=== PATIENT | female | born 1995 | race African-American/Black ===

== ENCOUNTER 2018-01-27 04:45 | Emergency (ER) | payer SELFPAY ==
--- NOTE | 2018-01-27 05:39 | ER ---
Nurse's Notes [facility] Name: Paula Walker Age: 22 yrs Sex: Female : 1995 Arrival Date: 01/27/2018 Time: 04:46 Bed 13 Private MD: None, None Diagnosis: Chest pain. GERD Presentation: 01/27 04:57 Presenting complaint: Patient states: cental chest pain that radiates down to ak1 epigastric area that started at 0200 this morning. pt stated at 0200 she vomited X1 and had a BM, pain resolved. pt woke at 0400 with pain again. Transition of care: patient was not received from another setting of care. Onset of symptoms was January 27, 2018. Risk Assessment: Do you want to hurt yourself or someone else? Patient reports no desire to harm self or others. Initial Sepsis Screen: Does the patient meet any 2 criteria? No. Patient's initial sepsis screen is negative. Does the patient have a suspected source of infection? No. Patient's initial sepsis screen is negative. Care prior to arrival: None. 04:57 Method Of Arrival: Ambulatory ak1 04:57 Acuity: EMILY 3 ak1 Triage Assessment: 04:59 General: Appears in no apparent distress. Behavior is calm, cooperative. Pain: ak1 Complains of pain in xyphoid area and mid-sternal area. EENT: No signs and/or symptoms were reported regarding the EENT system. Neuro: No deficits noted. Cardiovascular: Reports chest pain, vomiting. Respiratory: No deficits noted. GI: Abdomen is round Bowel sounds present X 4 quads. Abd is soft and non tender X 4 quads. Reports vomiting. : No signs and/or symptoms were reported regarding the genitourinary system. Derm: No signs and/or symptoms reported regarding the dermatologic system. Musculoskeletal: No signs and/or symptoms reported regarding the musculoskeletal system. 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 - Social history:: Smoking status: Patient/guardian denies using tobacco. - Ebola Screening: : No symptoms or risks identified at this time. Screenin:01 Abuse screen: Denies threats or abuse. Denies injuries from another. Nutritional ak1 screening: No deficits noted. Tuberculosis screening: No symptoms or risk factors identified. Fall Risk None identified. Assessment: 05:01 Pain: Pain radiates to chest and mid-sternal area and xyphoid area Pain began 3 hours ak1 ago. 05:02 Reassessment: Patient appears in no apparent distress at this time. No changes from ak1 previously documented assessment. see triage assessment. Vital Signs: 04:59 BP 119 / 67; Pulse 70; Resp 16; Temp 98.4(TE); Pulse Ox 98% on R/A; Weight 77.11 kg ak1 (M); Height 5 ft. 5 in. (165.10 cm) (R); Pain 5/10; 04:59 Body Mass Index 28.29 (77.11 kg, 165.10 cm) ak1 ED Course: 04:46 Patient arrived in ED. es 04:46 None, None is Private Physician. es 04:56 Malini Garza, RN is Primary Nurse. ak1 04:58 Triage completed. ak1 04:59 Arm band placed on Patient placed in an exam room, on a stretcher, on pulse oximetry, ak1 Patient notified of wait time. 05:02 Patient has correct armband on for positive identification. Bed in low position. Call ak1 light in reach. Side rails up X 1. Pulse ox on. NIBP on. 05:02 Patient maintains SpO2 saturation greater than 95% on room air. ak1 05:12 Urine collected: clean catch specimen, malini colored. ak1 05:18 Odin Haider MD is Attending Physician. pkl 06:12 No provider procedures requiring assistance completed. Patient did not have IV access ak1 during this emergency room visit. Administered Medications: 05:48 Drug: GI Cocktail without - (Maalox Suspension 30 ml, Lidocaine Liquid 2 % 15 jd3 ml) Route: PO; 06:06 Follow up: Response: No adverse reaction ak1 Outcome: 05:38 Discharge ordered by . pkl 06:12 Discharged to home ambulatory, with family. ak1 06:12 Condition: improved 06:12 Discharge instructions given to patient, family, Instructed on discharge instructions, follow up and referral plans. medication usage, Demonstrated understanding of instructions, follow-up care, medications, Prescriptions given X 1. 06:13 Patient left the ED. ak1 Signatures: Odin Haider MD MD pkl Salyer, Edna es Krenek, Amber RN RN ak1 Meet Vazquez RN RN jd3
--- NOTE | 2018-01-27 05:39 | EDPHYS ---
Physician Documentation [facility] Name: Paula Walker Age: 22 yrs Sex: Female : 1995 Arrival Date: 01/27/2018 Time: 04:46 Bed 13 Private MD: None, None ED Physician Odin Haider HPI: 01/27 05:34 This 22 yrs old Black Female presents to ER via Ambulatory with complaints of Chest pkl Pain, Abdominal Pain. 05:34 The patient or guardian reports chest pain that is located primarily in the substernal pkl area, epigastric area. Associated signs and symptoms: The patient has no apparent associated signs or symptoms. The chest pain is described as burning. 05:34 Patient said pain started 4 hours ago. 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 - Social history:: Smoking status: Patient/guardian denies using tobacco. - Ebola Screening: : No symptoms or risks identified at this time. ROS: 05:34 Eyes: Negative for injury, pain, redness, and discharge, ENT: Negative for injury, pkl pain, and discharge, Neck: Negative for injury, pain, and swelling. 05:34 Cardiovascular: Positive for chest pain. 05:34 Respiratory: Negative for cough, shortness of breath. 05:34 Abdomen/GI: Positive for abdominal pain, of the epigastric area. 05:34 Back: Negative for acute changes. 05:34 : Negative for urinary symptoms. 05:34 MS/extremity: Negative for acute changes. 05:34 Skin: Negative for rash. 05:34 Neuro: Negative for altered mental status. Exam: 05:34 Head/Face: Normocephalic, atraumatic. Eyes: Pupils equal round and reactive to light, pkl extra-ocular motions intact. Lids and lashes normal. Conjunctiva and sclera are non-icteric and not injected. Cornea within normal limits. Periorbital areas with no swelling, redness, or edema. ENT: Nares patent. No nasal discharge, no septal abnormalities noted. Tympanic membranes are normal and external auditory canals are clear. Oropharynx with no redness, swelling, or masses, exudates, or evidence of obstruction, uvula midline. Mucous membranes moist. Neck: Trachea midline, no thyromegaly or masses palpated, and no cervical lymphadenopathy. Supple, full range of motion without nuchal rigidity, or vertebral point tenderness. No Meningismus. Chest/axilla: Normal chest wall appearance and motion. Nontender with no deformity. No lesions are appreciated. Cardiovascular: Regular rate and rhythm with a normal S1 and S2. No gallops, murmurs, or rubs. Normal PMI, no JVD. No pulse deficits. Respiratory: Lungs have equal breath sounds bilaterally, clear to auscultation and percussion. No rales, rhonchi or wheezes noted. No increased work of breathing, no retractions or nasal flaring. 05:34 Abdomen/GI: Bowel sounds: normal, Palpation: abdomen is soft and non-tender, in all quadrants, soft. 05:34 Back: Exam negative for acute changes. 05:34 : Exam negative for acute changes. 05:34 Musculoskeletal/extremity: Exam is negative for acute changes. 05:34 Skin: Exam negative for rash. 05:34 Neuro: Orientation: is normal, Mentation: is normal, Cranial nerves: grossly normal, Motor: is normal. Vital Signs: 04:59 BP 119 / 67; Pulse 70; Resp 16; Temp 98.4(TE); Pulse Ox 98% on R/A; Weight 77.11 kg ak1 (M); Height 5 ft. 5 in. (165.10 cm) (R); Pain 5/10; 04:59 Body Mass Index 28.29 (77.11 kg, 165.10 cm) ak1 MDM: 05:18 Patient medically screened. pkl 05:37 Data reviewed: vital signs, nurses notes, EKG. pkl 01/27 05:21 Order name: Urine Dipstick--Ancillary (enter results); Complete Time: 06:14 ms 01/27 05:21 Order name: Urine --Ancillary (enter results); Complete Time: 06:14 ms 01/27 05:19 Order name: EKG; Complete Time: 05:20 ak1 01/27 05:19 Order name: EKG - Nurse/Tech; Complete Time: 05:20 ak1 Administered Medications: 05:48 Drug: GI Cocktail without - (Maalox Suspension 30 ml, Lidocaine Liquid 2 % 15 jd3 ml) Route: PO; 06:06 Follow up: Response: No adverse reaction ak1 Disposition: 01/27/18 05:38 Discharged to Home. Impression: Chest pain. GERD. - Condition is Stable. - Prescriptions for Protonix 40 mg Oral Tablet, Delayed Release (E.C.) - take 1 tablet by ORAL route once daily; 15 tablet. - Medication Reconciliation Form, Thank You Letter, Antibiotic Education, Prescription Opioid Use form. - Follow up: Private Physician; When: 2 - 3 days; Reason: Re-evaluation by your physician. - Problem is new. - Symptoms have improved. Signatures: Dispatcher [employer] EDMS Odin Haider MD MD pkl Virginie Garza RN RN ak1 Meet Vazquez RN RN jd3 Corrections: (The following items were deleted from the chart) 06:13 05:38 01/27/2018 05:38 Discharged to Home. Impression: Chest pain. GERD. Condition is ak1 Stable. Forms are Medication Reconciliation Form, Thank You Letter, Antibiotic Education, Prescription Opioid Use. Follow up: Private Physician; When: 2 - 3 days; Reason: Re-evaluation by your physician. Problem is new. Symptoms have improved. pkl
[2018-01-27] MEDS ORDERED: MAGNE/ALUM HYDROXD 30 ML UCUP ONE (05:49)
[2018-01-27] MEDS ORDERED: LIDOCAINE VISCOUS 2% SOLN 15 ML UDC ONE (05:49)
[2018-01-27 06:00] LABS: Urine Blood 3+ (NEG); Urine Glucose NEGATIVE (NEG); Urine Protein 1+ (NEG); Urine Specific Gravity 1.025 (1.005-1.030)
[2018-01-27 06:19] VITALS: BP 119/67; TEMP 98.4; O2SAT 98
--- NOTE | 2018-01-27 12:09 | EKG ---
Test Date: 2018-01-27 Test Time: 05:14:08 Supervisor Print Line: CRISTAL MEASUREMENT RESULTS: Intervals: Rate: 74 MD: 144 QRSD: 74 QT: 376 QTc: 417 [place]: P: 64 MD: 144 QRS: 40 T: 37 INTERPRETIVE STATEMENTS: Normal sinus rhythm with sinus arrhythmia Nonspecific T wave abnormality Abnormal ECG Compared to ECG 08/10/2014 15:51:51 T-wave abnormality now present Electronically Signed On 01-27-18 12:08:29 CDT by Jack Mike
== END 2018-01-27 06:13 | disposition home or self-care (01) ==
LOC: ER 04:45
DX: K21.9 Gastro-esophageal reflux disease without esophagitis (principal)
CPT/HCPCS: 81003; 81025; 93005; 99284

== ENCOUNTER 2018-08-20 10:10 | Emergency (ER) | payer SELFPAY ==
[2018-08-20 11:19] LABS: Urine Blood 3+ (NEG); Urine Glucose NEGATIVE (NEG); Urine Protein 3+ (NEG); Urine pH 6.5 (5.0-7.0)
[2018-08-20 11:30] LABS: Absolute Lymphocytes (CBC) 2.4 K/uL (0.7-4.9); Absolute Monocytes 0.3 K/uL (0.1-1.3); Absolute Neutrophil 3.3 K/uL (1.8-8.0); Basophils % 0.4 % (0-1.3); Eosinophils % 0.7 % (0-4.4); Hematocrit 41.7 % (36.0-45.0); Lymphocytes % 39.2 % (15.3-44.8); Monocytes % 5.6 % (3.3-12.3); RBC Red Blood Cell Count 4.84 M/uL (3.86-4.86)
[2018-08-20 11:49] LABS: BUN Blood Urea Nitrogen 13 mg/dL (7-18); Bicarbonate 28 mmol/L (21-32); Glucose Level 87 mg/dL (74-106); Potassium 4.1 mmol/L (3.5-5.1); Sodium Level 141 mmol/L (136-145)
[2018-08-20 11:50] LABS: HCG, Quantitative < 1 mIU/mL (1-3)
--- NOTE | 2018-08-20 12:06 | ER ---
Nurse's Notes [facility] Name: Paula Walker Age: 23 yrs Sex: Female : 1995 Arrival Date: 08/20/2018 Time: 10:12 Bed 16 Private MD: Diagnosis: Abnormal uterine and vaginal bleeding, unspecified Presentation: 08/20 10:24 Presenting complaint: Patient states: LMP- 06/14/18; took a test Thursday, it says i was ; this AM when i wiped i saw light blood; dark santos color; denies N/V;. Transition of care: patient was not received from another setting of care. Onset of symptoms was August 20, 2018. Risk Assessment: Do you want to hurt yourself or someone else? Patient reports no desire to harm self or others. Initial Sepsis Screen: Does the patient meet any 2 criteria? No. Patient's initial sepsis screen is negative. Does the patient have a suspected source of infection? No. Patient's initial sepsis screen is negative. Care prior to arrival: None. 10:24 Method Of Arrival: Ambulatory 10:24 Acuity: MEILY 3 Triage Assessment: 10:26 General: Appears in no apparent distress. uncomfortable, Behavior is calm, cooperative, hj appropriate for age. Pain: Denies pain. : Reports vaginal bleeding that is. 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 - Social history:: Smoking status: Patient/guardian denies using tobacco, Patient/guardian denies using alcohol. - Ebola Screening: : Patient negative for fever greater than or equal to 101.5 degrees Fahrenheit, and additional compatible Ebola Virus Disease symptoms Patient denies exposure to infectious person Patient denies travel to an Ebola-affected area in the 21 days before illness onset. Screenin:26 Abuse screen: Denies threats or abuse. Denies injuries from another. Nutritional hj screening: No deficits noted. Tuberculosis screening: No symptoms or risk factors identified. Fall Risk None identified. Assessment: 11:00 Obstetrical Assessment: General assessment: awake and alert, skin warm and dry, bp respirations even and unlabored. General: Appears in no apparent distress. comfortable, Behavior is calm, cooperative, appropriate for age. Pain: Denies pain. Neuro: Level of Consciousness is awake, alert, obeys commands, Oriented to person, place, time, situation, Appropriate for age. Cardiovascular: No deficits noted. Respiratory: Airway is patent Respiratory effort is even, unlabored, Respiratory pattern is regular, symmetrical. GI: No signs and/or symptoms were reported involving the gastrointestinal system. : Reports vaginal bleeding that is. EENT: No deficits noted. Derm: No deficits noted. Musculoskeletal: No deficits noted. 12:36 Reassessment: PT D/C HOME AMBULATORY WITH FAMILY, DX WITH ABNORMAL UTERINE BLEEDING. bp Vital Signs: 10:27 BP 102 / 53; Pulse 71; Resp 18; Temp 98.5(TE); Pulse Ox 100% on R/A; Weight 93.89 kg; hj Height 5 ft. 5 in. (165.10 cm); Pain 0/10; 12:38 BP 111 / 57; Pulse 75; Resp 16; Pulse Ox 99% ; bp 10:27 Body Mass Index 34.44 (93.89 kg, 165.10 cm) hj ED Course: 10:12 Patient arrived in ED. as 10:25 Triage completed. hj 10:26 Arm band placed on left wrist. hj 10:27 Patient has correct armband on for positive identification. Placed in gown. Bed in low hj position. Call light in reach. Side rails up X 1. Adult w/ patient. 10:30 Ariel Guajardo PA is PHCP. jr8 10:30 Hector Liu MD is Attending Physician. jr8 10:35 Jay Armas, [employer] is Primary Nurse. bp 11:05 Inserted saline lock: 20 gauge in left antecubital area, using aseptic technique. Blood bp collected. 12:36 No provider procedures requiring assistance completed. IV discontinued, intact, bp bleeding controlled, No redness/swelling at site. Pressure dressing applied. Administered Medications: No medications were administered Point of Care Testing: Urine : 12:38 hCG Reading: Negative; Control Reading: Positive; bp Outcome: 12:05 Discharge ordered by . jr8 12:36 Discharged to home ambulatory, with family. bp 12:36 Condition: stable 12:36 Discharge instructions given to patient, Instructed on discharge instructions, follow up and referral plans. Demonstrated understanding of instructions, follow-up care. 12:38 Patient left the ED. em Signatures: Gerardo Rivera, SENIOR RADIATION PROTECTION TECHNICIAN SENIOR RADIATION PROTECTION TECHNICIAN em Kathia Porter Josh, PA PA jr8 Dionicio Cheung RN RN Jay Dupree RN RN bp Corrections: (The following items were deleted from the chart) 10:29 10:27 Pulse 71bpm; Resp 18bpm; Pulse Ox 100% RA; Temp 98.5F Temporal; 93.89 kg; Height hj 5 ft. 5 in.; BMI: 34.4; Pain 0/10; hj
--- NOTE | 2018-08-20 12:06 | EDPHYS ---
Physician Documentation [facility] Name: Paula Walker Age: 23 yrs Sex: Female : 1995 Arrival Date: 08/20/2018 Time: 10:12 Bed 16 Private MD: ED Physician Hector Liu HPI: 08/20 12:01 This 23 yrs old Black Female presents to ER via Ambulatory with complaints of Vaginal jr8 Bleeding, + Preg <12wks. 12:01 course: care: none. Previous pregnancies: in previous pregnancies jr8 patient has had vaginal delivery, no complications. Associated signs and symptoms: The patient has no apparent associated signs or symptoms. The patient has not experienced similar symptoms in the past. The patient has not recently seen a physician. Patient stated that she had light menstrual cycle beginning of july. Stopped and then started again today but took test showed positive . 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 - Social history:: Smoking status: Patient/guardian denies using tobacco, Patient/guardian denies using alcohol. - Ebola Screening: : Patient negative for fever greater than or equal to 101.5 degrees Fahrenheit, and additional compatible Ebola Virus Disease symptoms Patient denies exposure to infectious person Patient denies travel to an Ebola-affected area in the 21 days before illness onset. ROS: 12:01 Eyes: Negative for injury, pain, redness, and discharge, ENT: Negative for injury, jr8 pain, and discharge, Neck: Negative for injury, pain, and swelling, Cardiovascular: Negative for chest pain, palpitations, and edema, Respiratory: Negative for shortness of breath, cough, wheezing, and pleuritic chest pain, Abdomen/GI: Negative for abdominal pain, nausea, vomiting, diarrhea, and constipation, Back: Negative for injury and pain, MS/Extremity: Negative for injury and deformity, Skin: Negative for injury, rash, and discoloration, Neuro: Negative for headache, weakness, numbness, tingling, and seizure. 12:01 : Positive for vaginal bleeding. Exam: 12:01 Eyes: Pupils equal round and reactive to light, extra-ocular motions intact. Lids and jr8 lashes normal. Conjunctiva and sclera are non-icteric and not injected. Cornea within normal limits. Periorbital areas with no swelling, redness, or edema. ENT: Nares patent. No nasal discharge, no septal abnormalities noted. Tympanic membranes are normal and external auditory canals are clear. Oropharynx with no redness, swelling, or masses, exudates, or evidence of obstruction, uvula midline. Mucous membranes moist. Neck: Trachea midline, no thyromegaly or masses palpated, and no cervical lymphadenopathy. Supple, full range of motion without nuchal rigidity, or vertebral point tenderness. No Meningismus. Cardiovascular: Regular rate and rhythm with a normal S1 and S2. No gallops, murmurs, or rubs. Normal PMI, no JVD. No pulse deficits. Respiratory: Lungs have equal breath sounds bilaterally, clear to auscultation and percussion. No rales, rhonchi or wheezes noted. No increased work of breathing, no retractions or nasal flaring. Abdomen/GI: Soft, non-tender, with normal bowel sounds. No distension or tympany. No guarding or rebound. No evidence of tenderness throughout. Back: No spinal tenderness. No costovertebral tenderness. Full range of motion. Skin: Warm, dry with normal turgor. Normal color with no rashes, no lesions, and no evidence of cellulitis. MS/ Extremity: Pulses equal, no cyanosis. Neurovascular intact. Full, normal range of motion. Neuro: Awake and alert, GCS 15, oriented to person, place, time, and situation. Cranial nerves II-XII grossly intact. Motor strength 5/5 in all extremities. Sensory grossly intact. Cerebellar exam normal. Normal gait. Vital Signs: 10:27 BP 102 / 53; Pulse 71; Resp 18; Temp 98.5(TE); Pulse Ox 100% on R/A; Weight 93.89 kg; hj Height 5 ft. 5 in. (165.10 cm); Pain 0/10; 12:38 BP 111 / 57; Pulse 75; Resp 16; Pulse Ox 99% ; bp 10:27 Body Mass Index 34.44 (93.89 kg, 165.10 cm) hj MDM: 10:31 Patient medically screened. [facility] 12:01 Data reviewed: vital signs, nurses notes, lab test result(s), and as a result, I will jr8 discharge patient. Data interpreted: Pulse oximetry: on room air is 100 %. Interpretation: normal. Counseling: I had a detailed discussion with the patient and/or guardian regarding: the historical points, exam findings, and any diagnostic results supporting the discharge/admit diagnosis, lab results, the need for outpatient follow up, an OB/Gyne specialist, to return to the emergency department if symptoms worsen or persist or if there are any questions or concerns that arise at home. 08/20 10:43 Order name: Quantitative Hcg [facility] 08/20 10:43 Order name: Abo/rh Typing; Complete Time: 12:15 [facility] 08/20 10:43 Order name: Basic Metabolic Panel; Complete Time: 12: [facility] 08/20 10:43 Order name: CBC with Diff; Complete Time: 11:34 [facility] 08/20 10:43 Order name: HCG, Quantitative; Complete Time: 12:01 EDMS 08/20 11:16 Order name: Urine Dipstick--Ancillary (enter results); Complete Time: 11:34 eb 08/20 10:43 Order name: Urine Test (obtain specimen); Complete Time: 11:16 [facility] 08/20 10:43 Order name: IV Saline Lock; Complete Time: 11:16 08/20 10:43 Order name: Labs collected and sent; Complete Time: 11:16 [facility] 08/20 10:43 Order name: NPO; Complete Time: 11:16 [facility] 08/20 10:43 Order name: Urine Dipstick-Ancillary (obtain specimen); Complete Time: 11: 08/20 11:16 Order name: Urine --Ancillary (enter results); Complete Time: 11:34 eb Administered Medications: No medications were administered Point of Care Testing: Urine : 12:38 hCG Reading: Negative; Control Reading: Positive; bp Disposition: 13:38 Co-signature as Attending Physician, Hector Liu MD I agree with the assessment and kdr plan of care. Disposition: 08/20/18 12:05 Discharged to Home. Impression: Abnormal uterine and vaginal bleeding, unspecified. - Condition is Stable. - Discharge Instructions: Abnormal Uterine Bleeding. - Medication Reconciliation Form, Thank You Letter, Antibiotic Education, Prescription Opioid Use form. - Follow up: Private Physician; When: 2 - 3 days; Reason: Recheck today's complaints, Continuance of care, Re-evaluation by your physician. - Problem is new. - Symptoms have improved. Signatures: Dispatcher [employer] EDMS Hector Liu MD MD kdr Munoz, Edgar, SALES ENGAGEMENT EXECUTIVE SALES ENGAGEMENT EXECUTIVE em Ariel Guajardo PA PA jr8 Dionicio Cheung RN RN hj Corrections: (The following items were deleted from the chart) 12:38 12:05 08/20/2018 12:05 Discharged to Home. Impression: Abnormal uterine and vaginal em bleeding, unspecified. Condition is Stable. Forms are Medication Reconciliation Form, Thank You Letter, Antibiotic Education, Prescription Opioid Use. Follow up: Private Physician; When: 2 - 3 days; Reason: Recheck today's complaints, Continuance of care, Re-evaluation by your physician. Problem is new. Symptoms have improved. jr8
[2018-08-20 12:43] VITALS: TEMP 98.5
[2018-08-20 12:44] VITALS: BP 111/57; O2SAT 99
== END 2018-08-20 12:38 | disposition home or self-care (01) ==
LOC: ER 10:10
DX: N93.9 Abnormal uterine and vaginal bleeding, unspecified (principal)
CPT/HCPCS: 36415; 80048; 81003; 81025; 84702; 85025; 86900; 86901; 99283

== ENCOUNTER 2019-01-20 10:35 | Emergency (ER) | payer SELFPAY ==
--- NOTE | 2019-01-20 11:13 | ER ---
Nurse's Notes [facility] Name: Paula Walker Age: 23 yrs Sex: Female : 1995 Arrival Date: 01/20/2019 Time: 10:37 Bed 14 Private MD: Diagnosis: Conjunctivitis-left eye Presentation: 01/20 10:48 Presenting complaint: Patient states: green drainage and pain to L eye for the past two days. Transition of care: patient was not received from another setting of care. Onset of symptoms was January 18, 2019. Risk Assessment: Do you want to hurt yourself or someone else? Patient reports no desire to harm self or others. Initial Sepsis Screen: Does the patient meet any 2 criteria? No. Patient's initial sepsis screen is negative. Does the patient have a suspected source of infection? No. Patient's initial sepsis screen is negative. Care prior to arrival: None. 10:48 Method Of Arrival: Ambulatory 10:48 Acuity: EMILY 5 ch Triage Assessment: 10:48 General: Appears in no apparent distress. uncomfortable, Behavior is calm, cooperative, ch appropriate for age. Pain: Complains of pain in left eye Pain currently is 3 out of 10 on a pain scale. Pain began gradually. EENT: Eyes are tearing on left eye with exudate noted from left eye Sclera/Cornea are reddened in left eye. Respiratory: No deficits noted. Derm: Skin is pink, warm \T\ dry. 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 - Social history:: Smoking status: Patient/guardian denies using tobacco, Patient/guardian denies using alcohol, street drugs. - Ebola Screening: : Patient negative for fever greater than or equal to 101.5 degrees Fahrenheit, and additional compatible Ebola Virus Disease symptoms Patient denies exposure to infectious person Patient denies travel to an Ebola-affected area in the 21 days before illness onset No symptoms or risks identified at this time. Screenin:54 Abuse screen: Denies threats or abuse. Denies injuries from another. Nutritional ch screening: No deficits noted. Tuberculosis screening: No symptoms or risk factors identified. Fall Risk None identified. Vital Signs: 10:48 BP 114 / 48; Pulse 79; Resp 16; Temp 98; Pulse Ox 98% on R/A; Weight 90.72 kg; Height 5 ch ft. 5 in. (165.10 cm); Pain 3/10; 11:23 BP 124 / 79; Pulse 74; Resp 16 S; Pulse Ox 100% on R/A; jl7 10:48 Body Mass Index 33.28 (90.72 kg, 165.10 cm) Visual Acuity: 10:54 Left Eye Visual acuity 20/40, Pupil size 4 mm, Normal, React To Light, Reactive To ch Accomodation; Right Eye Visual acuity 20/20, Pupil size 4 mm, Normal, React To Light, Reactive To Accomodation; Both Eyes Visual acuity 20/20; With Lenses; ED Course: 10:37 Patient arrived in ED. as 10:48 Triage completed. ch 10:48 Arm band placed on left wrist. Patient placed in an exam room, on a stretcher. ch 10:51 Alex Fraga PA is PHCP. cp 10:51 Luis Stahl MD is Attending Physician. cp 10:53 José Pleitez RN is Primary Nurse. jl7 10:54 No apparent distress. Resting quietly. ch 10:54 Patient has correct armband on for positive identification. Call light in reach. Side ch rails up X 1. Adult w/ patient. 10:54 Patient did not have IV access during this emergency room visit. 11:10 Danny Norman MD is Referral Physician. cp 11:21 No provider procedures requiring assistance completed. jl7 Administered Medications: No medications were administered Outcome: 11:10 Discharge ordered by . cp 11:21 Discharged to home ambulatory. jl7 11:21 Condition: stable 11:21 Discharge instructions given to patient, Instructed on discharge instructions, follow up and referral plans. medication usage, Demonstrated understanding of instructions, follow-up care, medications, Prescriptions given X 1. 11:23 Patient left the ED. jl7 Signatures: Mae Roth RN RN Kathia Fisher as Alex Fraga PA PA cp Pleitez, Jahala, RN RN jl7
--- NOTE | 2019-01-20 11:13 | EDPHYS ---
Physician Documentation [facility] Name: Paula Walker Age: 23 yrs Sex: Female : 1995 Arrival Date: 01/20/2019 Time: 10:37 Bed 14 Private MD: ED Physician Luis Stahl HPI: 01/20 11:04 This 23 yrs old Black Female presents to ER via Ambulatory with complaints of Eye cp Problem. 11:04 The patient is experiencing matting or discharge, pain, redness, to the left eye, cp caused by an unknown mechanism. 11:05 Onset: The symptoms/episode began/occurred 2 day(s) ago. Duration: the symptoms are cp continuous. Associated signs and symptoms: Pertinent negatives: ear ache, fever, headache, runny nose. Patient wears glasses. 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 - Social history:: Smoking status: Patient/guardian denies using tobacco, Patient/guardian denies using alcohol, street drugs. - Ebola Screening: : Patient negative for fever greater than or equal to 101.5 degrees Fahrenheit, and additional compatible Ebola Virus Disease symptoms Patient denies exposure to infectious person Patient denies travel to an Ebola-affected area in the 21 days before illness onset No symptoms or risks identified at this time. ROS: 11:05 Constitutional: Negative for body aches, chills, fever. cp 11:05 Eyes: Positive for discharge, pain, redness, Negative for vision loss. 11:05 ENT: Negative for drainage from ear(s), ear pain, sore throat, difficulty swallowing, difficulty handling secretions. 11:05 Respiratory: Negative for cough. 11:05 Abdomen/GI: Negative for nausea, vomiting, and diarrhea. 11:05 Skin: Negative for rash. 11:05 Neuro: Negative for headache. 11:05 All other systems are negative. Exam: 11:07 Visual Acuity: I have reviewed the nursing documentation. cp 11:07 Head/Face: Normocephalic, atraumatic. 11:07 Constitutional: The patient appears in no acute distress, alert, awake, non-toxic, well developed, well nourished. 11:07 Eyes: Periorbital structures: appear normal, Pupils: equal, round, and reactive to light and accomodation, Extraocular movements: intact throughout, Conjunctiva: injected, in the left eye, Lids and lashes: appear normal, bilaterally. 11:07 ENT: External ear(s): are unremarkable, Nose: is normal, Mouth: Lips: moist, Oral mucosa: moist, Posterior pharynx: Airway: no evidence of obstruction, patent. 11:07 Neck: Lymph nodes: no appreciated lymphadenopathy. 11:07 Chest/axilla: Inspection: normal. 11:07 Cardiovascular: Rate: normal. 11:07 Respiratory: the patient does not display signs of respiratory distress, Respirations: normal. 11:07 Abdomen/GI: Exam negative for discomfort, distension, guarding, Inspection: abdomen cp appears normal. 11:07 Skin: no rash present. Vital Signs: 10:48 BP 114 / 48; Pulse 79; Resp 16; Temp 98; Pulse Ox 98% on R/A; Weight 90.72 kg; Height 5 ch ft. 5 in. (165.10 cm); Pain 3/10; 11:23 BP 124 / 79; Pulse 74; Resp 16 S; Pulse Ox 100% on R/A; jl7 10:48 Body Mass Index 33.28 (90.72 kg, 165.10 cm) ch Visual Acuity: 10:54 Left Eye Visual acuity 20/40, Pupil size 4 mm, Normal, React To Light, Reactive To ch Accomodation; Right Eye Visual acuity 20/20, Pupil size 4 mm, Normal, React To Light, Reactive To Accomodation; Both Eyes Visual acuity 20/20; With Lenses; MDM: 11:00 Patient medically screened. cp 11:09 Differential diagnosis: Corneal abrasion of left eye. Corneal ulcer of left eye. cp Foreign body in left eye. Acute iritis of left eye. Infectious conjunctivitis in left eye. 11:10 Data reviewed: vital signs, nurses notes, and as a result, I will discharge patient. cp 11:10 Counseling: I had a detailed discussion with the patient and/or guardian regarding: the cp historical points, exam findings, and any diagnostic results supporting the discharge/admit diagnosis, to return to the emergency department if symptoms worsen or persist or if there are any questions or concerns that arise at home. Administered Medications: No medications were administered Disposition: 11:30 Chart complete. cp 16:19 Co-signature as Attending Physician, Luis Stahl MD. rn Disposition: 01/20/19 11:10 Discharged to Home. Impression: Conjunctivitis - left eye. - Condition is Stable. - Discharge Instructions: Bacterial Conjunctivitis. - Prescriptions for Gentamicin 0.3 % Ophthalmic Drops - instill 1 drop by OPHTHALMIC route every 4 hours for 7 days; 1 bottle. - Medication Reconciliation Form, Thank You Letter, Antibiotic Education, Prescription Opioid Use, Work release form form. - Follow up: Danny Norman MD; When: 1 - 2 days; Reason: Worsening of condition. - Problem is new. - Symptoms have improved. Signatures: Mae Roth, RN RN Luis Ramey MD MD rn Page, Corey, PA PA cp Leal, Jahala RN RN jl7 Corrections: (The following items were deleted from the chart) 11:11 11:10 01/20/2019 11:10 Discharged to Home. Impression: Conjunctivitis. Condition is cp Stable. Forms are Medication Reconciliation Form, Thank You Letter, Antibiotic Education, Prescription Opioid Use. Follow up: Danny Norman; When: 1 - 2 days; Reason: Worsening of condition. Problem is new. Symptoms have improved. cp 11:23 11:11 01/20/2019 11:10 Discharged to Home. Impression: Conjunctivitis - left eye. jl7 Condition is Stable. Discharge Instructions: Bacterial Conjunctivitis. Prescriptions for Gentamicin 0.3 % Ophthalmic Drops - instill 1 drop by OPHTHALMIC route every 4 hours for 7 days; 1 bottle. and Forms are Medication Reconciliation Form, Thank You Letter, Antibiotic Education, Prescription Opioid Use. Follow up: Danny Norman; When: 1 - 2 days; Reason: Worsening of condition. Problem is new. Symptoms have improved. cp
[2019-01-20 11:28] VITALS: TEMP 98
[2019-01-20 11:29] VITALS: BP 124/79; O2SAT 100
== END 2019-01-20 11:23 | disposition home or self-care (01) ==
LOC: ER 10:35
DX: H10.9 Unspecified conjunctivitis (principal)
CPT/HCPCS: 99282